=== PATIENT | female | born 1990 | race Caucasian/White ===

== ENCOUNTER 2019-07-23 14:32 | Outpatient (CLI) | payer OTHER, SELFPAY ==
--- NOTE | ~2019-07-23 | US_ITS ---
EXAMINATION: US OB /maternal detail DATE: 07/23/2019 15:49 INDICATION: survey TECHNIQUE: Multiple obstetric sonographic images performed. FINDINGS: No prior studies for comparison. There is a single living fetus in breech presentation. The placenta is posterior/fundal without plac enta previa. Amniotic fluid volume is normal. cardiac activity and movement is noted with a heart rate of 131 beats per minute. The following anatomy was identified as normal: 4 chamber heart 3 vessel cord cord insertion kidneys urinary bladder stomach spine diaphragm ventricles cisterna magna cerebellum The following biometric data were obtained: BPD: 49mm corresponds to gestational age 20 weeks 6 days. Head circumference: 19 mm corresponds to gestational age 21 weeks 2 days. Abdominal circumference: 155 mm corresponds to gestational age 20 weeks 5 days. Femur length: 37 mm corresponds to gestational age 21 weeks 6 days. Head circumference to abdominal circumference ratio: 1.22 (normal range for expected gestational age is 1.06-1.25). Estimated weight: 408 grams +/- 61 grams using Hadlock method. IMPRESSION: 1: Single living intrauterine with an estimated gestational age of 21weeks 1days by current ultrasound measurements, with an EDC of 12/02/2019 in breech presentation. 2. Normal survey. Reviewed, dictated and finalized at location A. IMPRESSION: 1: Single living intrauterine with an estimated gestational age of 21 weeks 1days by current ultrasound measurements, with an EDC of 12/02/2019 in br eech presentation. 2. Normal survey.
== END 2019-07-23 14:33 | disposition home or self-care (01) ==
PROVIDERS: PCP Family Medicine; Visit Provider Obstetrics & Gynecology
DX: Z36.9 Encounter for antenatal screening, unspecified (principal); Z3A.00 Weeks of gestation of pregnancy not specified
CPT/HCPCS: 76805

== ENCOUNTER 2019-11-12 07:36 | Outpatient (RCR) | payer OTHER, SELFPAY ==
[2019-10-26 12:20] VITALS: BP 112/64; PULSE 86
[2019-10-29 08:11] VITALS: BP 105/62; PULSE 85
[2019-11-02 17:05] VITALS: BP 108/70; PULSE 89
[2019-11-05 09:17] VITALS: BP 106/66; PULSE 93
--- NOTE | ~2019-11-12 | US_ITS ---
EXAMINATION: US OB follow up DATE: 10/26/2019 12:56 INDICATION: Gestational diabetes. Third trimester. TECHNIQUE: Real-time ultrasound of the pelvis was performed. COMPARISON: Ultrasound 07/23/2019 FINDINGS: There is a single living fetus in vertex presentation. The placenta is posterior. heart rate i s 142 beats per minute (bpm). The amniotic fluid index is 12.6, which is normal. The following biometric data were obtained: Biparietal diameter (BPD): 8.3 cm; head circumference (HC): 30.7 cm; abdominal circumference (AC): 30 .3 cm; femur length (FL): 6.7 cm. These measurements are concordant. Estimated weight is 2377 g +/- 357 g, which correlates with 38th percentile when 12/04/19 is use d as estimated date of delivery. As single measurements, these parameters are each equal to the following estimated gestational ages: BPD: 33 weeks 3 days. HC: 34 weeks 2 days. AC: 34 weeks 1 days. FL: 34 weeks 4 days. estimated gestational age based solely on measurements from this exam is 34 weeks 1 days +/- 2 weeks 3 days. IMPRESSION: 1. Single living fetus in vertex presentation. 2. Estimated weight is 2377 g +/- 357 g, which correlates with 38th percentile when 12/04/19 is used as estimated date of delivery. Reviewed, dictated and finalized at location A. IMPRESSION: 1. Single living fetus in vertex presentation. 2. Estimated weight is 2377 g +/- 357 g, which correlates with 38th perc entile when 12/04/19 is used as estimated date of delivery.
== END 2019-11-25 10:28 | disposition home or self-care (01) ==
LOC: ANHOBOP 07:36
PROVIDERS: PCP Family Medicine; Visit Provider Obstetrics & Gynecology
DX: O24.419 Gestational diabetes mellitus in pregnancy, unspecified control (principal); Z3A.34 34 weeks gestation of pregnancy; Z3A.35 35 weeks gestation of pregnancy; Z3A.36 36 weeks gestation of pregnancy
CPT/HCPCS: 59025; 76816

== ENCOUNTER 2019-11-30 15:45 | Outpatient (CLI) | payer OTHER, SELFPAY ==
[2019-11-30 16:20] LABS: Hematocrit 37.7 % (37.0-47.0); Hemoglobin 12.9 g/dL (12.0-15.0); Mean Corpuscular HGB Conc 34.2 g/dl (32-36); Mean Corpuscular Hemoglobin 31.2 pg (26-34); Mean Corpuscular Volume 91.3 fl (80-100); Mean Platelet Volume 10.6 fl (7.4-10.4); Platelet Count Result 233 k/mm3 (150-375); Red Blood Count 4.13 M/mm3 (4.2-5.4); Red Cell Distribution Width 13.5 % (11.5-14.5)
[2019-12-01 08:35] LABS: Rapid Plasma Reagin Non-Reactive (NonReactive)
== END 2019-11-30 15:46 | disposition home or self-care (01) ==
LOC: ANHLAB 15:48
PROVIDERS: Visit Provider Obstetrics & Gynecology
DX: Z01.812 Encounter for preprocedural laboratory examination (principal)
CPT/HCPCS: 36415; 85027; 86592; 86850; 86900; 86901

== ENCOUNTER 2019-11-30 16:15 | Outpatient (RCR) | payer OTHER, SELFPAY ==
[2019-11-16 14:59] VITALS: BP 113/72; PULSE 81
[2019-11-23 14:07] VITALS: BP 108/65; PULSE 89
[2019-11-26 09:27] VITALS: BP 114/67; PULSE 101
--- NOTE | ~2019-11-30 | US_ITS ---
EXAMINATION: US OB follow up DATE: 11/16/2019 14:32 INDICATION: Gestational diabetes. TECHNIQUE: Real-time transabdominal obstetric ultrasound. FINDINGS: 10/26/2019 There is a single living fetus in vertex presentation. The placenta is posterior without placenta pr evia. cardiac activity and movement is noted with a heart rate of 145 beats per minute. T he amniotic fluid volume is normal. MATILDA measures 14.5 cm. The following biometric data were obtained: BPD: 88mm corresponds to gestational age 35 weeks 2 days. Head circumference: 312mm corresponds to gestational age 34 weeks 6 days. Abdominal circumference: 334mm corresponds to gestational age 37 weeks 5 days. Femur length: 71mm corresponds to gestational age 36 weeks 2 days. Estimated weight: 3020grams +/- 453grams.] IMPRESSION: 1. Single living intrauterine in vertex presentation with an estimated gestational age of 37 weeks 5 days by inititial ultrasound. Appropriate interval growth. 2. Normal placenta. 3.: Normal MATILDA measures 14.5 cm. Reviewed, dictated and finalized at location A. IMPRESSION: 1. Single living intrauterine in vertex presentation with an estimat ed gestational age of 37 weeks 5 days by inititial ultrasound. Appropriate int erval growth. 2. Normal placenta. 3.: Normal MATILDA measures 14.5 cm.
[2019-11-30 16:35] VITALS: BP 114/71; PULSE 100
== END 2019-12-03 08:23 | disposition home or self-care (01) ==
LOC: ANHOBOP 16:15
PROVIDERS: Visit Provider Obstetrics & Gynecology
DX: O24.419 Gestational diabetes mellitus in pregnancy, unspecified control (principal); Z3A.37 37 weeks gestation of pregnancy; Z3A.38 38 weeks gestation of pregnancy; Z3A.39 39 weeks gestation of pregnancy
CPT/HCPCS: 59025; 76816

== ENCOUNTER 2019-12-01 07:20 | Inpatient (IN) | payer OTHER, SELFPAY ==
--- NOTE | 2019-11-29 10:27 | WPDANESEPP ---
Anes - Eval Pre Procedure Procedure: Operation Date: 12/01/19 09:00 Proposed Procedures p Repeat Section with Bilateral Tubal Ligation - Kilo Garza MD Date/Time: 11/29/19 10:27 Pre Op Diagnosis: Pre-admit, sterilization Patient Data Age: 29 Gender: F Height: Weight: Allergies Allergy/AdvReac Type Severity Reaction Status Date / Time No Known Allergies Allergy Unverified 03/14/17 13:29 Home Medications Medication Instructions Recorded Confirmed Type PNV cmb#95-ferrous fumarate-FA 1 tablet PO DAILY 11/09/19 11/09/19 History [] Patient hx anesthesia problems: none Family hx anesthesia problems: none PMFSH Past Medical History Medical History Smoking history Surgical History Surgical History Previous section x2 Family History Family History Other No pertinent family history Social History Social History Substance use: never Gender identity (if verbalized by the patient): Female Spiritual care concerns: No Exam Day of Procedure 11/29/19 10:27
[2019-12-01] VITALS (61 sets, daily range): BP systolic 89–119; BP diastolic 46–85; PULSE 55–86; RESP 12–20; TEMP 36.2–36.9; O2SAT 95–100; BMI 38.3
--- NOTE | 2019-12-01 07:18 | P.HP_ITS ---
H&P: HPI History of Present Illness Date/Time: 12/01/19 07:18 Chief complaint: Pre-admit, sterilization Narrative: Marcela Lara is a 29 year old female 4 para 3003 with 3 prior sections presents for repeat delivery. This has be en complicated by gestational diabetes which has been treated with diet and well controlled. testing has also been within normal limits. She desires permanent sterilization 0 have discussed the permanence failure and increased risk of ectopic she states good understanding and strongly desires to proceed with tubal ligation. Review of Systems Review of Systems: All systems reviewed & are unremarkable except as noted in HPI and below PMFSH Past Medical History Medical History Smoking history Surgical History Surgical History Previous section x2 Family History Family History Other No pertinent family history Social History Social History Substance use: never Gender identity (if verbalized by the patient): Female Spiritual care concerns: No Meds Home Medications and Allergies Home Medications Medication Instructions Recorded Confirmed Type PNV cmb#95-ferrous fumarate-FA 1 tablet PO DAILY 11/09/19 11/09/19 History [] Allergies Allergy/AdvReac Type Severity Reaction Status Date / Time No Known Allergies Allergy Unverified 03/14/17 13:29 Exam Const: General: no acute distress Resp: Auscultation: clear to auscultation bilaterally Cardio: Rate: regular rate Rhythm: regular rhythm GI: GI Palp: Yes Soft to palpation Other: Fundal height 40cm heart tones 130 Assessment and Plan Assessment and plan (1) 39 weeks gestation of : Code(s): Z3A.39 - 39 weeks gestation of Status: Acute (2) Previous delivery affecting : Code(s): O34.219 - Maternal care for unspecified type scar from previous delivery Status: Acute (3) Gestational diabetes: Code(s): O24.419 - Gestational diabetes mellitus in , unspecified control Status: Acute (4) Encounter for female sterilization procedure: Code(s): Z30.2 - Encounter for sterilization Status: Acute Additional Plan 1. Repeat low transverse section 2. Bilateral tubal ligation.
--- NOTE | 2019-12-01 07:20 | WPDHPUPDATE1 ---
History and Physical Update Update Date/Time: 12/01/19 07:20 History and Physical has been reviewed, including an updated exam of the patient. There are NO changes in the patient's condition. Risks, benefits, and alternatives have been discussed and questions answered. Patient agrees to proceed with procedure.
--- NOTE | 2019-12-01 07:21 | WPDHPUPDATE1 ---
History and Physical Update Update Date/Time: 12/01/19 07:21 History and Physical has been reviewed, including an updated exam of the patient. There are NO changes in the patient's condition. Risks, benefits, and alternatives have been discussed and questions answered. Patient agrees to proceed with procedure.
[2019-12-01] MEDS: LACTATED RINGERS 1,000 ML 125 ML IV CONT ×2 (07:56→09:23)
[2019-12-01 08:01] LABS: Glucose Point of Care 87 (65-105)
--- NOTE | 2019-12-01 08:02 | WPDANESEPP ---
Anes - Eval Pre Procedure Procedure: Operation Date: 12/01/19 09:00 Proposed Procedures p Repeat Section with Bilateral Tubal Ligation - Kilo Garza MD Date/Time: 12/01/19 08:02 Surgeon: Kayla Preop Diagnosis: Previous C section, Desired Sterility Pre Op Diagnosis: C Sections Patient Data Age: 29 Gender: F Height: 5 ft 1 in Weight: 92 kg Last Vital Signs Pulse 86 12/01/19 07:41 BP 113/72 12/01/19 07:41 Allergies Allergy/AdvReac Type Severity Reaction Status Date / Time No Known Allergies Allergy Unverified 03/14/17 13:29 Home Medications Medication Instructions Recorded Confirmed Type PNV cmb#95-ferrous fumarate-FA 1 tablet PO DAILY 11/09/19 11/09/19 History [] Laboratory Tests 12/01/19 07:55 POC Capillary Glucose 87 mg/dl mg/dl (65-105) : gestational age (BEAR 12/04/19) Patient hx anesthesia problems: none Family hx anesthesia problems: none Prior Surgeries: Previous c section x3 PMFSH Past Medical History Medical History Smoking history Surgical History Surgical History Previous section x2 Family History Family History Other No pertinent family history Social History Social History Substance use: never Gender identity (if verbalized by the patient): Female Spiritual care concerns: No Exam Day of Procedure 12/01/19 08:02 Patient weight: normal Heart: regular rate and rhythm Lungs: normal air movement Airway: Mallampati scale class II Neurological: alert and oriented
--- NOTE | 2019-12-01 08:11 | LDADM ---
This patient, Marcela Lara, was admitted to Labor/Delivery/Recovery 120 on 12/01/19 at 07:17. Plans for section, pain management and were discussed with patient. Patient/family oriented to hospital policies and general routines including ID bracelet, bed and alarms, visiting hours, pain management, procedures, bathroom and other care routines, personal items, smoking policy, room service/diet and guest tray routines, security routines, and visiting hours. Patient/Family are encouraged to report perceived risks to care and to ask questions if they do not understand what they are told or what they should do. See OBIX for further documentation.
--- NOTE | 2019-12-01 08:29 | WPDANESEFPP ---
Anes - Eval Final PreProcedure Day of Procedure 12/01/19 08:29 Patient weight: obese Heart: regular rate and rhythm Lungs: clear to auscultation Airway: Mallampati scale class II Neurological: alert and oriented Last oral intake: >/= 8 hours ASA classification: III Emergent: no Anesthetic plan: proceed Anesthesia type and monitoring: regional spinal and standard monitoring Informed Consent: The patient's anesthetic plan and its attendant risks and benefits were discussed with the patient/family/POA. Questions were solicited and answers provided to the satisfaction of the patient/family/POA.
[2019-12-01 08:57] LABS: HIV 1/2 Ab P24 Ag Result Negative (Negative)
--- NOTE | 2019-12-01 09:16 | P.PCNOB_ITS ---
OB - Delivery Note Procedure Procedure: Procedures Operation Date: 12/01/19 09:00 <No data on this case meets the specified criteria> Route of delivery: (With bilateral tubal ligation) Specimen: No Estimated blood loss (mL): 500 Anesthesia type: Spinal Disposition: floor Narrative: Patient prepped and draped in usual manner for this procedure. Pfannenstiel incision which was then carried down to the fascia, which was extended the length of the skin incision. Superiorly and inferiorly rectus muscle from the fascia and the peritoneum was entered without difficulty. Bladder flap was developed uterus was scored and clear fluid was noted at delivery. Vertex was delivered section naso-oropharynx rest basal without difficulty cord was clamped and cut and the placenta was delivered manually. Uterus was exteriorized cleared of membranes and clots and closed using 0 Monocryl in running interlocking manner with good approximation and hemostasis noted. Bilaterally tubes were doubly grasped with the David clamp ligated and segments of tube removed. Uterus returned the abdomen segment tubal segments were noted to be hemostatic and intact uterine incision also was intact. Fascia was approximated using 0 Vicryl from the left angle to the midline and then the writing at the midline. Subcutaneous tissue approximated using 0 plain suture which was then followed by staple closure of the skin. Patient are procedure well sent to recovery room in stable condition. [place] Baby Weeks of gestation at delivery: 39 Infant gender: Female Weight (pounds): 7 Weight (ounces): 12 score one minute: 8 score five minutes: 8
[2019-12-01] MEDS: OXYTOCIN 30 UNITS/NS 500 ML 30 UNITS/500 ML BAG 125 UNITS IV CONT (10:15)
[2019-12-01] MEDS: diphenhydrAMINE HCl INJ 50 MG/ML VIAL 25 MG IV PUSH (10:23)
[2019-12-01] MEDS: fentaNYL CITRATE INJ (*CRX) 100 MCG/2 ML VIAL 25 MCG IV PUSH (11:01)
--- NOTE | 2019-12-01 12:50 | PC.NURSE ---
Addendum entered by Celia Fong RN 12/01/19 12:53: Pt. admitted to room 286 at 1153. Original Note: Patient transferred to post room #286 per stretcher. Support person present. Oriented to unit, room, information board, rooming in, admission packet and security measures. Patient verbalizes understanding.
[2019-12-01] MEDS: SIMETHICONE 80 MG TAB.CHEW PO ×2 (13:36→16:07)
[2019-12-01] MEDS: KETOROLAC 30 MG/ML VIAL (*BKC) IV PUSH (13:37)
[2019-12-01] MEDS: HYDROcodone/acetaminophen (*CRX) 10-325 MG TABLET 1 TAB PO ×3 (13:38→23:22)
[2019-12-01] MEDS: KCL 20 MEQ/D5/0.45% SOD CHL 1,000 ML 125 ML IV CONT (14:49)
[2019-12-01] MEDS: DOCUSATE SODIUM 100 MG CAPSULE PO (16:07)
[2019-12-02] VITALS: BP 100/60; PULSE 73; RESP 18; TEMP 36.9; O2SAT 98
[2019-12-02] MEDS: HYDROcodone/acetaminophen (*CRX) 10-325 MG TABLET 1 TAB PO ×3 (03:53→12:55)
[2019-12-02 04:00] VITALS: BP 101/66; PULSE 100; RESP 18; TEMP 36.8; O2SAT 99
[2019-12-02 05:30] LABS: Basophils Percent Auto 0.3 % (0.2-1.2); Eosinophils Absolute Auto 0.2 K/mm3 (0-0.3); Eosinophils Percent Auto 1.2 % (0-4.4); Hematocrit 38.6 % (37.0-47.0); Hemoglobin 12.4 g/dL (12.0-15.0); Immature Granulocyte Absolute 0.09 K/mm3 (0.00-0.031); Immature Granulocyte Percent A 0.6 % (0-0.5); Lymphocytes Absolute Auto 1.63 K/mm3 (0.9-3.2); Lymphocytes Percent Auto 11.3 % (18.3-44.2); Mean Corpuscular HGB Conc 32.1 g/dl (32-36); Mean Corpuscular Hemoglobin 31.1 pg (26-34); Mean Corpuscular Volume 96.7 fl (80-100); Mean Platelet Volume 11.1 fl (7.4-10.4); Monocytes Absolute Auto 0.9 K/mm3 (0.1-0.6); Monocytes Percent Auto 6.3 % (2.6-8.5); Neutrophils Absolute Auto 11.5 K/mm3 (1.3-6.7); Neutrophils Percent Auto 80.3 % (45.5-73.1); Platelet Count Result 200 k/mm3 (150-375); Red Blood Count 3.99 M/mm3 (4.2-5.4); Red Cell Distribution Width 13.9 % (11.5-14.5); White Blood Count 14.4 K/mm3 (4.5-10.0)
[2019-12-02] MEDS: DOCUSATE SODIUM 100 MG CAPSULE PO ×2 (07:08→17:17)
[2019-12-02] MEDS: SIMETHICONE 80 MG TAB.CHEW PO ×4 (07:08→22:28)
[2019-12-02] MEDS: MULTIVIT/MIN/PREN/FOL AC/IRON TABLET 1 TAB PO (07:09)
[2019-12-02] MEDS: IBUPROFEN 600 MG TABLET PO ×3 (07:10→19:55)
[2019-12-02 07:34] VITALS: BP 105/62; PULSE 85; RESP 18; TEMP 36.8; O2SAT 100
--- NOTE | 2019-12-02 09:13 | WPDANLDNPN2 ---
Anes-Prog Note L&D-Neuraxial Date/Time: 12/02/19 09:13 Neuraxial medications: intrathecal PF morphine Opiod-related complaints: none Patient feedback: Patient satisfied with post-operative pain management.
--- NOTE | 2019-12-02 09:13 | WPDANLDPN2 ---
Anes-Prog Note L&D Date/Time: 12/02/19 09:13 Comfortable throughout: section Neuraxial method: spinal Epidural/Spinal procedure site: clean & non-tender Neuro status: Neuro function grossly intact. Vital Signs: Last Vital Signs Temp 36.8 C 12/02/19 07:34 Pulse 85 12/02/19 07:34 Resp 18 12/02/19 07:34 BP 105/62 12/02/19 07:34 Pulse Ox 100 12/02/19 07:34 Pain score (VAS): 0 I/O: Intake & Output 12/01/19 12/02/19 12/02/19 23:59 07:59 15:59 Intake Total 1200 1600 Output Total 650 1800 Balance 550 -200 Patient feedback: Patient satisfied with anesthetic care.
--- NOTE | 2019-12-02 12:45 | PC.NURSE ---
Consulted with patient, mother states she is concerned infant is not waking for feedings. Assured mother it is normal to wake for feeding the first several days of life. Mother reports tenderness with feedings. Mother is attempting to breast in cradle, allowing to self attach with shallow latch. Reviewed infant feeding cues, frequencies, duration of feedings, feeding elimination flow sheet, and signs of adequate intake. Demonstrated stimulation techniques to wake for feeding. Assisted with to breast. Reviewed positioning/alignment in cross cradle, holding breast in U hold and guided asymmetrical latch on. Discussed the rational for each. Infant was able to latch correctly. nursed eagerly for bursts with steady draws and occasional swallowing noted, followed with long pausing.. Reviewed signs of a correct latch, effective nursing and suck swallow ratio. Infant was able to maintain latch without discomfort to mother. Nipple care reviewed. Suggested to stimulate while feeding to keep awake and effectively feeding and to assist with maintaining deep latch. Instructed mother to call out for RN assistance if she is unable to latch for feeding or she has discomfort with nursing. Instructed feeding should be initiated three hours from start of last feeding or if feeding cues are noted before. Mother voiced understanding of information shared.
[2019-12-02] MEDS: TETANUS,DIPHTHERIA,AC PERTUSSIS ADULT (0.5 ML) BOOSTRIX IM (13:10)
[2019-12-02] MEDS: HYDROcodone/acetaminophen (*CRX) 5-325 MG TABLET 1 TAB PO ×3 (17:16→23:35)
[2019-12-02 20:00] VITALS: BP 100/60; PULSE 84; RESP 16; TEMP 36.7; O2SAT 100
[2019-12-03] MEDS: SIMETHICONE 80 MG TAB.CHEW PO ×3 (01:50→12:02)
[2019-12-03] MEDS: IBUPROFEN 600 MG TABLET PO ×2 (01:50→09:20)
[2019-12-03] MEDS: HYDROcodone/acetaminophen (*CRX) 5-325 MG TABLET 1 TAB PO ×3 (05:55→12:02)
--- NOTE | 2019-12-03 07:25 | P.DS_ITS ---
DS: Admitting Diagnosis Admitting Diagnosis Admitting Diagnosis: C Sections OB - DS: Summary OB Procedures : None OB Procedures Intrapartum: hysterectomy and Tubal ligation OB Procedures: : None Peripartum Data Procedures: Procedures Operation Date: 12/01/19 09:00 Actual Procedures Side Surgeon p Section Not Applicable Kilo Garza MD Time Spent with Patient Time attestation: Total time spent providing and/or coordinating discharge services: DS: Data Data Completed and Pending Completed studies during hospitalization: Pending at discharge 12/01/19 09:39 Surgical [PTH] Routine Discharge Plan Discharge Discharging Clinician: Kilo Garza Patient Disposition: Home, Self-Care Activity: as tolerated Diet: as tolerated Wound Care Instructions: incision open to air Discharge Instructions: office saturday for staple removal Patient Instructions: Antibiotic Form Stand Alone Forms: General Discharge Information Follow-up/Referrals: Kilo Garza MD [Physician] - 3 Weeks Discharge Medications: New hydrocodone-acetaminophen 5-325 mg Tablet 1 tab PO Q3H PRN (Reason: Moderate Pain (4-6)) Qty: 20 RF: 0 ibuprofen 600 mg Tablet 600 mg PO Q6H PRN (Reason: Cramping) Qty: 30 RF: 0 Continued PNV cmb#95-ferrous fumarate-FA [] 28 mg iron- 800 mcg Tablet 1 tablet PO DAILY RF: 0 Date of admission: 12/01/19 07:20 Primary Care Provider: PHYSICIAN,TERRAZZO MECHANIC Admitting Provider: Kilo Garza Attending physician on admission: Kilo Garza Condition: Stable
[2019-12-03 08:10] VITALS: BP 109/65; PULSE 72; RESP 18; TEMP 37.3; O2SAT 97
--- NOTE | 2019-12-03 09:16 | WPDANLDPN2 ---
Anes-Prog Note L&D Date/Time: 12/03/19 09:16 Comfortable throughout: section Neuraxial method: spinal Epidural/Spinal procedure site: clean & non-tender Neuro status: Neuro function grossly intact. Cardiovascular status: normal Respiratory status: normal Airway patency: baseline Mental status: baseline Post-Op hydration status: normal Vital Signs: Last Vital Signs Temp 36.7 C 12/02/19 20:00 Pulse 84 12/02/19 20:00 Resp 16 12/02/19 20:00 BP 100/60 12/02/19 20:00 Pulse Ox 100 12/02/19 20:00 Pain score (VAS): 0 Post-procedural complaints: none Patient feedback: Patient satisfied with anesthetic care.
--- NOTE | 2019-12-03 09:16 | WPDANLDNPN2 ---
Anes-Prog Note L&D-Neuraxial Date/Time: 12/03/19 09:16 Neuraxial medications: intrathecal PF morphine Opiod-related complaints: none Patient feedback: Patient satisfied with post-operative pain management.
[2019-12-03] MEDS: MULTIVIT/MIN/PREN/FOL AC/IRON TABLET 1 TAB PO (09:20)
[2019-12-03] MEDS: DOCUSATE SODIUM 100 MG CAPSULE PO (09:20)
--- NOTE | 2019-12-03 11:05 | PC.NURSE ---
Mother is able to independently latch infant with appropriate positioning/alignment. She denies any nipple discomfort, is feeding as required and waking to feed if needed. Mother reports is more awake and eager to feed each feeding. has had at least 8 effective feedings in the past 24 hours, and is currently meeting outcomes for weight, output, jaundice and feeding frequencies. Mother states she feels confident to continue effective at home. Reviewed transition to breast milk, signs of adequate intake, and engorgement/relief. Instructed to call ICP if intake/output less than required. Reviewed regular medications mother is taking. Information provided per Maribel. Reviewed community resources on the [facility] website and in the Mom/Baby guide. Information on outpatient services provided. Mother has no further questions at this time.
[2019-12-04 10:32] VITALS: BP 111/77; PULSE 95; RESP 20; TEMP 36.9
== END 2019-12-03 14:09 | disposition home or self-care (01) | DRG 785 ==
LOC: ANHLDR 07:21 → ANHOB2 11:56
PROVIDERS: Admitting Provider Obstetrics & Gynecology; Visit Provider Obstetrics & Gynecology
PROC: 10D00Z1 Extraction of Products of Conception, Low, Open Approach (ICD-10-PCS; CPT 59514; principal; 2019-12-01 09:00)
DX: O34.211 Maternal care for low transverse scar from previous cesarean delivery (principal); Z37.0 Single live birth; Z3A.39 39 weeks gestation of pregnancy; Z23 Encounter for immunization; O24.420 Gestational diabetes mellitus in childbirth, diet controlled; O99.824 Streptococcus B carrier state complicating childbirth; O99.214 Obesity complicating childbirth; E66.9 Obesity, unspecified; Z30.2 Encounter for sterilization
CPT/HCPCS: 36415; 85025; 86703; 88302; 90471; 90653; 90715; A9270; G0008; G0432; J0131; J1200; J1885; J2274; J2370; J2405; J2590; J3010; J3480; J7120

== ENCOUNTER 2021-01-18 08:56 | Outpatient (CLI) | payer OTHER, SELFPAY ==
--- NOTE | ~2021-01-18 | US_ITS ---
EXAMINATION: US abdomen complete DATE: 01/18/2021 09:54 INDICATION: Epigastric pain TECHNIQUE: Multiple grayscale and Doppler ultrasound images of the abdomen were obtained. COMPARISON: None FINDINGS: The pancreatic head and body are normal in appearance. The pancreatic tail is not visualized. Liver has normal echogenicity and contour, with a smooth surface. No liver lesion identified. No intrahepat ic biliary duct dilation suspected. Portal venous flow was seen in the hepatopetal, normal direction and has normal Doppler waveform. 1.9 cm echogenic and shadowing gallstone at the fundus of the normal -appearing gallbladder with no gallbladder dilation or abnormal wall thickening. Sonographic Cifuentes s ign was reported as negative by the medical practitioners. Common bile duct measures 3 mm in diameter which is normal. There is normal renal contour and echogenicity bilaterally. The right kidney measures 10.9 x 4.3 x 4.0 cm and the left 10.7 x 6.1 x 5.3 cm. There are no focal renal lesions identified. There i s no hydronephrosis. Spleen is normal measuring 10.2 cm in maximal length. Normal abdominal aorta kian suring 2.2 cm in diameter proximally, 1.6 similar in the mid aorta and 1.4 cm the distal aorta. The v isualized proximal inferior vena cava is normal. IMPRESSION: 1. Cholelithiasis with large gallstone in the otherwise normal appearing gallbladder. No other findin gs to suggest acute cholecystitis. Reviewed, dictated and finalized at location A. EQUIPMENT FIELD SERVICE TECHNICIAN IMPRESSION: 1. Cholelithiasis with large gallstone in the otherwise normal appearing gallbl adder. No other findings to suggest acute cholecystitis.
== END 2021-01-18 08:57 | disposition home or self-care (01) ==
LOC: ANHIMG 08:59
PROVIDERS: Visit Provider Internal Medicine Gastroenterology
DX: K80.20 Calculus of gallbladder without cholecystitis without obstruction (principal)
CPT/HCPCS: 76700

== ENCOUNTER → 2021-01-28 01:17 | Outpatient (CLI) | payer OTHER, SELFPAY ==
[2021-01-28 18:54] LABS: SARS-CoV-2 RNA PCR Negative
== END ==
PROVIDERS: Visit Provider Surgery
DX: Z01.812 Encounter for preprocedural laboratory examination (principal); Z20.822 Contact with and (suspected) exposure to COVID-19
CPT/HCPCS: C9803; U0003; U0005

== ENCOUNTER 2021-01-31 08:13 | Outpatient (CLI) | payer OTHER, SELFPAY ==
[2021-01-31 09:31] LABS: Alanine Aminotransferase 20 U/L (4-35); Albumin Level 4.3 g/dL (3.5-5.1); Alkaline Phosphatase 61 U/L (38-126); Amylase 60 U/L (30-110); Aspartate Amino Transferase 29 U/L (14-36); Bilirubin,Total 1.1 mg/dL (0.2-1.3); Lipase 103 U/L (23-300)
== END 2021-01-31 08:14 | disposition home or self-care (01) ==
LOC: ANHSURGERY 08:17
PROVIDERS: Visit Provider Surgery
DX: K80.10 Calculus of gallbladder with chronic cholecystitis without obstruction (principal); Z01.818 Encounter for other preprocedural examination
CPT/HCPCS: 36415; 80076; 82150; 83690; 86850; 86900; 86901

== ENCOUNTER 2021-02-01 00:31 | Day surgery (SDC) | payer OTHER, SELFPAY ==
[2021-01-27 15:00] VITALS: BMI 30.2
--- NOTE | 2021-01-27 15:17 | PC.NURSE ---
Report to the Outpatient Waiting Room, entrance under the green pavilion located off [facility], at time 6:00 on date 02/01/21. OR Time: 7:30. - You and your visitor will be asked a series of questions to screen for COVID 19 for your protection. - A mask is required within the hospital. - Only one visitor is allowed at this time. Patient visitors will be guided where to wait when not with patient. Preoperative COVID Testing Requirements: No COVID Test needed if: (proof is required; if not received patient will have Rapid Test prior to entry) - Patient has received COVID Vaccine at least 14 days prior to procedure date or - Patient has positive COVID test result within last 90 days of surgery date. COVID Test needed if above criteria is not met If not COVID vaccinated a COVID test must be conducted within 72 hours of surgery and patient is asked to isolate self from time of testing until procedure. You will go to the [facility] for your COVID testing. The [facility] site is located at the corner of [address] [facility]. COVID TEST 01/28 AT 9:00 You will only be called if COVID results are positive and your surgeon may reschedule your elective surgery date. Patients may have clear liquids (water, carbonated beverages, clear teas, apple juice) until 3 hours prior to surgery with a maximum of 20 ounces. - No food from midnight until time of surgery - Infants may have breast milk until 4 hours before surgery, formula 6 hours prior to surgery. - Children will be allowed to drink immediately following surgery. If applicable, please bring a bottle or sippy cup to assist with drinking. Juice, water, soda, and popsicles are readily available. For infants on formula, please bring formula the day of surgery. Pacifiers are allowed. Take the following medications with a SIP of water the morning of surgery: N/A Medications to discontinue per physician: N/A Date to take last dose: N/A Please no make-up, nail setswana, hairspray, perfume, deodorant, or body powder the day of surgery. No jewelry (including any body piercings) or valuables the day of surgery, leave them at home. Please take a shower or bath the night before, or the morning of, surgery with an antibacterial soap. Wear comfortable, loose fitting clothing. Children are encouraged to wear pajamas. HIBICLENS SHOWER - Jewelry must be removed prior to entering the operating room. Rings and piercings that are not removed may be cut off. - The hospital will not accept responsibility for valuables. - Please leave all valuables, including medications, at home the day of surgery. If you are going home after surgery, a licensed concrete pile driver operator must drive you home. - NO public transportation without another adult. - We recommend that an adult stay with you for 24 hours following discharge. - We also recommend that you do not drive, make important decision, drink alcoholic beverages, or take any drugs that were not prescribed by your health care provider for at least 24 hours after your discharge time. For Pediatric surgeries, we recommend two adults accompany the child home (only one inside the building at this time). Follow any additional instructions given to you from your surgeon. Telephone instructions given to SILVIA WHITE and asked if any additional questions and then verbalized understanding. Patient advised to call surgeon office or pre surgery nurse liaison [phone] if any additional questions.
[2021-02-01] VITALS (10 sets, daily range): BP systolic 93–112; BP diastolic 64–80; PULSE 54–77; RESP 14–16; TEMP 36.3–36.6; O2SAT 95–100
[2021-02-01] MEDS: ACETAMINOPHEN 500 MG TABLET 1000 MG PO (06:57)
--- NOTE | 2021-02-01 07:09 | WPDANESEPPF ---
Anes - Initial Pre Proc Eval Procedure: Operation Date: 02/01/21 07:30 Proposed Procedures p Laparoscopic Cholecystectomy, Possible Open - Kaiden Maharaj DO Date/Time: 02/01/21 07:09 Surgeon: Kaiden Maharaj DO Pre Op Diagnosis: symptomatic cholelithiasis Patient Data Age: 30 Gender: F Height: 1.55 m Weight: 72.57 kg Allergies Allergy/AdvReac Type Severity Reaction Status Date / Time No Known Allergies Allergy Verified 02/01/21 06:52 Home Medications Medication Instructions Recorded Confirmed Type No Home Medications 01/25/21 02/01/21 History Patient hx anesthesia problems: none Family hx anesthesia problems: none Results Review: All pre-operative results and documents have been reviewed as part of the pre-operative evaluation. [facility], [facility] Past Medical History Medical History Anxiety Smoking history Tobacco use Surgical History Surgical History H/O tubal ligation History of tonsillectomy Previous section x2 Family History Family History Other Cancer Social History Social History Smoking status: Current some day smoker Tobacco type: cigarettes and e-cigarettes/vaping Second hand tobacco smoke exposure: No Smoking end date: 03/11/19 Additional smoking assessment comments: CURRENTLY VAPES, CIGARETTES OCCASIONALLY Alcohol intake: current Drinks per week: 2 Substance use: never Substance use type: does not use Living arrangements: with family 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 Informed Consent: The patient's anesthetic plan and its attendant risks and benefits were discussed with the patient/family/POA. Questions were solicited and answers provided to the satisfaction of the patient/family/POA.
--- NOTE | 2021-02-01 07:11 | WPDHPUPDATE1 ---
History and Physical Update Update Date/Time: 02/01/21 07:11 History and Physical has been reviewed, including an updated exam of the patient. There are NO changes in the patient's condition. Risks, benefits, and alternatives have been discussed and questions answered. Patient agrees to proceed with procedure.
[2021-02-01] MEDS: LACTATED RINGERS 1,000 ML 30 ML IV CONT ×2 (07:25→08:26)
[2021-02-01] MEDS: KETOROLAC 15 MG/ML VIAL (*BKC) IV PUSH (07:26)
[2021-02-01] MEDS: ceFAZolin 2 GM/D5W 50 ML 2 GM/50 ML BAG IVPB (07:29)
[2021-02-01] MEDS: BUPIVACAINE HCL 0.5% PF 30 ML VIAL INFILTRATE (07:47)
--- NOTE | 2021-02-01 08:20 | W.PM.PROC2 ---
Procedure Note - Detailed Date of Procedure 02/01/21 Pre-op Diagnosis Chronic calculous cholecystitis Post-op Diagnosis same Procedure Performed Laparoscopic cholecystectomy Surgeon Kaiden Maharaj, DO Anesthesia general and local (0.5% bupivacaine) Indications This is a 30-year-old woman who presents with intermittent epigastric pain over the past 2 years. She has had more frequent episodes over the last 6 months and recently went to an emergency department in outside facility. She followed up with Dr. Denise and he ordered an abdominal ultrasound. Results showed evidence of cholelithiasis. Discussions were made with the patient about treatment options and decision was made to proceed with laparoscopic cholecystectomy. Findings Laparoscopic cholecystectomy was performed. Patient had a few pericholecystic adhesions and had 1 medium sized gallstone within the gallbladder. The cystic duct appeared normal in size no other abnormalities were noted. The gallbladder was removed and sent to the lab for pathology. Description of Procedure Procedure as well as risks, benefits, and alternatives were discussed with patient. Written consent was obtained and placed in chart prior to procedure. The patient was brought back to surgical suite. Patient was placed in supine position on operating table. Time-out was done to confirm patient and procedure. Patient was then intubated by the anesthesia department. Abdomen was prepped and draped in sterile fashion using chlorhexidine prep. 0.5% bupivacaine with epinephrine was infiltrated at each site of incision. An 11 millimeter vertical incision was made at the inferior portion of the umbilicus using a 15 blade scalpel. Blunt dissection was carried down to the linea alba. The linea alba was then incised using a 15 blade scalpel. The peritoneum was then bluntly entered. An 11 millimeter trocar was inserted and carbon dioxide insufflation was used to create a pneumoperitoneum. The camera was inserted and the abdomen was inspected. The patient was placed in reverse Trendelenberg position and rotated slightly to the left. A 5 millimeter incision was made in the epigastric region, and a 5 millimeter trocar was inserted under direct visualization. Two 5 millimeter incisions were made in the right upper quadrant, and two 5 millimeter trocars were inserted under direct visualization. The gallbladder was identified and grasped at the fundus and retracted superiorly. It was then grasped at the infundibulum retracted laterally. Careful dissection around the neck of the gallbladder was performed using blunt dissection with a [place] grasper and hook electrocautery. The cystic duct was identified, and a window was created behind it. The cystic artery was also identified and a window was created behind it. The critical view of safety was identified, visualizing the cystic duct running directly into the neck of the gallbladder, and the cystic artery running directly into the wall of the gallbladder. A 5 millimeter clip adjunct latin professor was then used to place 2 clips proximally and 1 clip distally on both the cystic duct and cystic artery. They were then both transected using endoscopic scissors. Once safely away from the migel hepatitis, the gallbladder was dissected free from the liver bed using hook electrocautery. Hemostasis was achieved along the way. The gallbladder was removed completely and then removed through the umbilical port. The liver bed was then inspected. Hemostasis appeared adequate, and our clips appeared secure. The area was gently irrigated with sterile saline. No other abnormalities were seen. The patient was flattened out in bed, and 1 final inspection was made around the abdominal cavity. The ports were then removed under direct visualization, the camera was removed, and the pneumoperitoneum was released. The fascia of the umbilical incision was approximated using an 0 Vicryl [id number] suture. The skin
[2021-02-01] MEDS: fentaNYL CITRATE INJ (*CRX) 100 MCG/2 ML VIAL 25 MCG IV PUSH ×7 (08:34→09:19)
[2021-02-01] MEDS: oxyCODONE HCL (*CRX) 5 MG TAB IR PO (09:58)
== END 2021-02-01 10:51 | disposition home or self-care (01) ==
PROVIDERS: Visit Provider Surgery
PROC: 0FT44ZZ Resection of Gallbladder, Percutaneous Endoscopic Approach (ICD-10-PCS; CPT 47562; principal; 2021-02-01 07:30)
DX: K80.10 Calculus of gallbladder with chronic cholecystitis without obstruction (principal); F17.290 Nicotine dependence, other tobacco product, uncomplicated
CPT/HCPCS: 47562; 36415; 80076; 82150; 83690; 86850; 86900; 86901; 88304; A9270; C9803; J0690; J1100; J1885; J2250; J2405; J2704; J2710; J3010; J7030; J7120; U0003; U0005

== ENCOUNTER 2021-06-05 12:47 | Outpatient (CLI) | payer OTHER, SELFPAY ==
[2021-06-05 14:22] LABS: HIV 1/2 Ab P24 Ag Result Negative (Negative)
[2021-06-05 18:46] LABS: Hepatitis B Surface Antigen Negative (Negative)
[2021-06-05 19:03] LABS: Hepatitis C Virus Antibody Negative (Negative)
[2021-06-06 06:54] LABS: Rapid Plasma Reagin Non-Reactive (NonReactive)
== END 2021-06-05 12:48 | disposition home or self-care (01) ==
LOC: ANHLAB 12:49
PROVIDERS: Visit Provider Obstetrics & Gynecology
DX: R10.2 Pelvic and perineal pain (principal); A64 Unspecified sexually transmitted disease
CPT/HCPCS: 36415; 86592; 86703; 86803; 87086; 87340; G0432